=== PATIENT | male | born 1995 | race Hispanic/Latino ===

== ENCOUNTER 2017-08-24 17:12 | Emergency (ER) | payer SELFPAY ==
[~2017-08-24] VITALS: Ht 167.6 cm; Wt 114.3 kg
[2017-08-24 18:44] LABS: HEMATOCRIT 43.8 % (38.0-50.0); HEMOGLOBIN 15.2 G/DL (12.5-16.6); MCH 29.8 PG (29.0-34.0); MCHC 34.7 G/DL (30.0-36.0); MCV 85.9 FL (86-99); PLATELET COUNT 208 K/uL (156-360); RBC DIS.WIDTH-CV 11.9 % (11.8-14.6); RBC DIS.WIDTH-SD 37.6 % (39-53); WHITE BLOOD COUNT 8.2 K/uL (4.1-10.2)
[2017-08-24 18:57] LABS: ALBUMIN 4.3 g/dL (3.2-4.8)
[2017-08-24 18:58] LABS: CHLORIDE 110 mEq/L (99-109); POTASSIUM 3.8 mEq/L (3.7-5.4); SODIUM 142 mEq/L (136-147)
[2017-08-24 19:00] LABS: GLUCOSE 90 mg/dL (70-99); TOTAL PROTEIN 7.5 g/dL (6.4-8.3)
[2017-08-24 19:03] LABS: ALKALINE PHOSPHATASE 85 IU/L (3-129)
[2017-08-24 19:04] LABS: CREATININE 0.8 mg/dL (0.6-1.3)
[2017-08-24 19:05] LABS: AST (GOT) 19 IU/L (2-34); UREA NITROGEN (BUN) 10 mg/dL (9-23)
[2017-08-24 19:06] LABS: ALT (GPT) 27 IU/L (3-49)
[2017-08-24 19:14] LABS: GFR ESTIMATE (CALCULATED) > 59 mL/min/ (58.99-99999)
[2017-08-24 19:20] LABS: APPEARANCE CLEAR ((CLEAR)); BILIRUBIN NEGATIVE; BLOOD NEGATIVE; COLOR YELLOW ((YELLOW)); GLUCOSE (STRIP) NEGATIVE; KETONES NEGATIVE; LEUKOCYTES NEGATIVE; NITRITE NEGATIVE; PROTEIN (STRIP) NEGATIVE; SPECIFIC GRAVITY 1.021 (1.000-1.030); UCUL ADDED? NO; UROBILINOGEN 0.2 MG/DL (0.2-1.0)
[2017-08-24 19:30] LABS: TOTAL BILIRUBIN 0.5 mg/dL (0.0-1.0)
[2017-08-24] MEDS ORDERED: MIRALAX17 GM PO (20:27)
[2017-08-24] MEDS ORDERED: ZOFRAN ODT8 MG PO (20:27)
[2017-08-24 20:58] VITALS: BP 132/92
== END 2017-08-24 20:59 | disposition home or self-care (01) ==
LOC: EME 17:12 → RME 17:12
DX: R10.9 Unspecified abdominal pain (principal); K59.00 Constipation, unspecified
CPT/HCPCS: 74022; 80053; 81003; 85027; 99281; 99284